=== PATIENT | male | born 1950 | race Caucasian/White ===

== ENCOUNTER 2016-12-08 04:40 | Observation (INO) | payer SELFPAY ==
[2016-12-08 06:08] LABS: BASO % 0.8 % (0.0-2.0); EOS # 0.3 K/uL (0.0-0.7); HEMATOCRIT 40.8 % (35.0-51.0); LYMPH # 2.9 K/uL (1.0-4.3); LYMPH % 46.6 % (20.0-40.0); MEAN CELL VOLUME 76.2 fL (80.0-94.0); MEAN CORPUSCULAR HGB CONC 32.8 g/dL (33.0-37.0); MEAN PLATELET VOLUME 8.8 fL (7.2-11.7); MONO # 0.6 K/uL (0.0-0.8); MONO % 10.3 % (0.0-10.0); RED CELL DISTRIBUTION WIDTH 14.8 % (11.5-14.5); WHITE BLOOD COUNT 6.3 K/uL (4.8-10.8)
[2016-12-08 06:16] LABS: INR 1.1
[2016-12-08 06:19] LABS: CHLORIDE 103 mmol/L (98-107); POTASSIUM 3.5 mmol/L (3.6-5.2); SODIUM 143 mmol/L (132-148)
[2016-12-08 06:21] LABS: GFR AFRICAN-AMERICAN > 60
[2016-12-08 06:22] LABS: ALB/GLOB RATIO 1.1 (1.0-2.1); ALKALINE PHOSPHATASE 51 U/L (38-126); ALT/SGPT 43 U/L (21-72); AST/SGOT 31 U/L (17-59); BILIRUBIN,TOTAL 0.3 mg/dL (0.2-1.3); BLOOD UREA NITROGEN 18 mg/dL (9-20); CARBON DIOXIDE 28 mmol/L (22-30); GLUCOSE,RANDOM 76 mg/dL (75-110)
[2016-12-08 06:23] LABS: CALCIUM 9.1 mg/dl (8.6-10.4)
--- NOTE | 2016-12-08 06:29 | C.PDOC ---
History Of Present Illness <Murali Leigh - Last Filed: 12/08/16 06:57> <Roosevelt Sebastian - Last Filed: 12/08/16 08:36> A 66 y/o with a Hx of diabetes, c/o chest discomfort for the past day. Pt describes the chest discomfort as "electricity with itchiness in the chest". Pt denies SOB, fever, chills, lightheadedness, diaphoresis, palpitations, dizziness , or any other complaints. (Murali Leigh R) History Per: Patient History/Exam Limitations: no limitations Onset/Duration Of Symptoms: Days Current Symptoms Are (Timing): Still Present Severity: Mild Recent travel outside of the [place]: No Additional History Per: Patient <Murali Leigh - Last Filed: 12/08/16 06:57> <Roosevelt Sebastian - Last Filed: 12/08/16 08:36> Time Seen by Provider: 12/08/16 04:59 Chief Complaint (Nursing): Chest Pain Past Medical History Reviewed: Historical Data, Nursing Documentation, Vital Signs Family History: States: Unknown Family Hx - Social History Hx Alcohol Use: No Hx Substance Use: No <Murali Leigh - Last Filed: 12/08/16 06:57> Review Of Systems Except As Marked, All Systems Reviewed And Found Negative. Constitutional: Negative for: Fever, Chills, Sweats Cardiovascular: Positive for: Chest Pain (Chest discomfort). Negative for: Palpitations, Light Headedness Respiratory: Negative for: Shortness of Breath Neurological: Negative for: Dizziness <Murali Leigh Last Filed: 12/08/16 06:57> Physical Exam - Physical Exam Appears: Non-toxic, No Acute Distress Skin: Warm, Dry Head: Atraumatic, Normacephalic Eye(s): bilateral: Normal Inspection Oral Mucosa: Moist Throat: Normal, No Exudate Chest: Symmetrical Cardiovascular: Rhythm Regular, No Murmur Respiratory: Normal Breath Sounds, No Accessory Muscle Use, No Rales, No Rhonchi , No Wheezing Gastrointestinal/Abdominal: Soft, No Tenderness Back: Normal Inspection, No CVA Tenderness Extremity: Normal ROM, No Tenderness, No Deformity Neurological/Psych: Oriented x3, Normal Speech, Normal Cognition, Normal Cranial Nerves, Normal Motor, Normal Sensation, Other (No focal deficit) Gait: Steady <Murali Leigh - Last Filed: 12/08/16 06:57> ED Course And Treatment - Laboratory Results Result Diagrams: 12/08/16 06:05 12/08/16 06:05 ECG: Interpreted By Me, Viewed By Me ECG Rhythm: Sinus Bradycardia ECG Interpretation: No Acute Changes Interpretation Of ECG: Sinus bradycardin, no acute change. normal tracings O2 Sat by Pulse Oximetry: 98 (RA) Pulse Ox Interpretation: Normal <Murali Leigh - Last Filed: 12/08/16 06:57> - Laboratory Results Result Diagrams: 12/08/16 06:05 12/08/16 06:05 <Roosevelt Sebastian - Last Filed: 12/08/16 08:36> Medical Decision Making <Murali Leigh - Last Filed: 12/08/16 06:57> <Roosevelt Sebastian - Last Filed: 12/08/16 08:36> Medical Decision Making: Impression: A 66 y/o c/o chest discomfort for the past day. Plans: EKG CXR Blood labs Reassess (Murali Leigh) Patient signed out to me at change of shift. Used arts administrator service to speak with patient. 66 y/o M c PMHx diabetes, diastolic dysfunction, unknown arrhythmia months ago in [place] p/w chest pain x 1 day. Pain is midsternal and bilateral, like electricity but also with itchiness, intermittent, last 3 hours ago lasting about 1 hour. Denies fever, cough, dyspnea, nausea, vomiting, diaphoresis, dizziness, association with food or activity. Denies leg swelling. CXR no acute disease. Labs unremarkable. EKG and bedside monitor show normal sinus rhythm, rate approximately 50. No ST elevations or depressions. Accepted by hospitalist service for cardiac observation. (Roosevelt Sebastian) Disposition - Disposition Disposition Time: 07:00 - POA Present On Arrival: None <Murali Leigh - Last Filed: 12/08/16 06:57> - POA Core Measure Indicators: Chest Pain <Roosevelt Sebastian - Last Filed: 12/08/16 08:36> - Disposition Disposition: HOSPITALIZED Condition: STABLE - Clinical Impression Clinical Impression: Chest pain - Scribe Statement The provider has reviewed the documentation as recorded by the Scribe <Murali Leigh - Last Filed: 12/08/16 06:57> <Roosevelt Sebastian - Last Filed: 12/08/16 08:36> - Scribe Statement Radha [place]ana All medical record entries made by the Scribe were at my direction and personally dictated by me. I have reviewed the chart and agree that the record accurately reflects my personal performance of the history, physical exam, medical decision making, and the department course for this patient. I have also personally directed, reviewed, and agree with the discharge instructions and disposition. (Murali Leigh) Physician Patient Turnover Patient Signed Over To: Roosevelt Sebastian Handoff Comments: pending blood work and CXR for chest discomfort. <Murali Leigh - Last Filed: 12/08/16 06:57>
--- NOTE | 2016-12-08 08:35 | RAD ---
HISTORY: chest pain COMPARISON: 12/08/2016 TECHNIQUE: Chest PA and lateral FINDINGS: LUNGS: Mild venous congestion. PLEURA: No significant pleural effusion identified. No pneumothorax apparent. CARDIOVASCULAR: Normal. OSSEOUS STRUCTURES: No significant abnormalities. VISUALIZED UPPER ABDOMEN: Normal. OTHER FINDINGS: None. IMPRESSION: Mild venous congestion.
[2016-12-08] MEDS ORDERED: Potassium Chloride 20 mEq ER Tab PO ONE ×2 (10:08→11:30)
--- NOTE | 2016-12-08 10:29 | CP.PCM.HP ---
History of Present Illness - History of Present Illness History of Present Illness: CC: "Chest discomfort" 66 year old [place] male with PMHx. of DM, HTN, BPH presents with 3 day history of left sided chest discomfort. Patient described pain as "electric" and "itchy". Episodes are intermittent, lasting 2-5 minutes at a time. Patient called the ambulance yesterday when symptoms spread from "left side" to "right side". Rest alleviates symptoms. Admits to dyspnea on exertion whenever he goes uphill. He does not have dyspnea on ambulation on flat surface and can walk 1-2 kilometers with no issue. Admits to SOB when lying flat. He sleeps using 2 pillows. Denies palpitations, SOB at rest, cough, palpitations, fevers, chills, headache, dysuria, abdominal pain. Admits he sometimes has trouble urinating due to BPH, but not recently. Denies any rashes or sick contacts. Has recently traveled here from [place]. Admits to intermittent visual changes secondary to diabetes. Admits to going to the hospital in [place] 3 months for similar symptoms and was told he had a slow heart rate, but that "some people have it and it's okay". Patient was given Q8H medication of Bellacid 300 mg (Atropa Belladona/ phenobarbital). PMHx: DM, HTN, BPH. Medications: Bellacid 300 mg, Flomax 0.4 mg PO daily, Regular insulin 30 unis SC QAM, 15 units SC HS. Allergies: NKDA Surgical Hx: denies surgeries Social Hx: denies tobacco, alcohol and illicit drug use. Family Hx: father with DM and CAD, brother with DM. PMD: In [place]. Present on Admission - Present on Admission Any Indicators Present on Admission: No Review of Systems - Constitutional Constitutional: absent: Chills, Fever - EENT Eyes: Blurred Vision (intermittently ). absent: Change in Vision Ears: absent: Dizziness - Cardiovascular Cardiovascular: Chest Pain, Dyspnea on Exertion. absent: Dyspnea, Palpitations , Paroxysmal Nocturnal Dyspnea, Pedal Edema - Respiratory Respiratory: absent: Dyspnea - Gastrointestinal Gastrointestinal: absent: Abdominal Pain, Bloating, Nausea, Vomiting - Genitourinary Genitourinary: absent: Change in Urinary Stream, Difficulty Urinating, Dysuria - Musculoskeletal Musculoskeletal: absent: Back Pain, Muscle Weakness, Numbness, Tingling - Integumentary Integumentary: absent: Dry Skin, Wounds - Neurological Neurological: absent: Dizziness, Numbness, Headaches, Paresthesias, Tingling, Weakness - Endocrine Endocrine: absent: Fatigue, Palpitations Past Patient History - Past Social History Smoking Status: Never Smoked - PSYCHIATRIC Hx Substance Use: No Meds Allergies/Adverse Reactions: Allergies Allergy/AdvReac Type Severity Reaction Status Date / Time No Known Allergies Allergy Unverified 12/08/16 05:59 Physical Exam - Constitutional Appears: No Acute Distress - Head Exam Head Exam: NORMAL INSPECTION, NORMOCEPHALIC - Eye Exam Eye Exam: EOMI, Normal appearance, PERRL - ENT Exam ENT Exam: Mucous Membranes Moist - Neck Exam Neck exam: Positive for: Full Rom, Normal Inspection - Respiratory Exam Respiratory Exam: Clear to Auscultation Bilateral, NORMAL BREATHING PATTERN - Cardiovascular Exam Cardiovascular Exam: REGULAR RHYTHM, +S1, +S2. absent: RRR - GI/Abdominal Exam GI & Abdominal Exam: Normal Bowel Sounds, Soft. absent: Distended, Tenderness - Extremities Exam Extremities exam: Positive for: full ROM, normal inspection. Negative for: pedal edema - Back Exam Back exam: FULL ROM, NORMAL INSPECTION - Neurological Exam Neurological exam: Alert, Oriented x3 - Psychiatric Exam Psychiatric exam: Normal Affect, Normal Mood - Skin Skin Exam: Dry, Normal Color, Warm Results - Vital Signs Recent Vital Signs: Last Vital Signs Temp 97.6 F 12/08/16 08:25 Pulse 50 L 12/08/16 08:25 Resp 16 12/08/16 08:25 BP 117/58 L 12/08/16 08:25 Pulse Ox 100 12/08/16 08:25 - Labs Result Diagrams: 12/08/16 06:05 12/08/16 06:05 Assessment & Plan (1) Chest pain Assessment and Plan: Admit to Telemetry. ORTEGA negative X 2. Follow up ORTEGA #3 EKG 12/08/16: NSR 53 bpm EKG 12/08/16: NSR 48 bpm f/u EKG #3 f/u Hgb A1C, TSH, FLP Start ASA 81 mg PO daily Start Crestor 5 mg PO HS Cardio Cosult - Dr. Xie- help appreciated. Status: Acute (2) Bradycardia Assessment and Plan: Cardio Cosult - Dr. Xie- help appreciated. Patient with HR in 40's-50's Patient takes home medication from [place] for bradycardia: Bellacid 300 mg Q8H ( Atropa Belladona/phenobarbital) Monitor on Telemetry. f/u cardio recommendations Status: Acute (3) Diastolic heart failure Assessment and Plan: ECHO done in [place] 09/01/16 showed: * EF 79% * Diastolic dysfuction * Calcific non-stenotic aortic valve * No wall motion abnormalities Cardio consult placed- Dr. Xie- help appreciated Status: Acute (4) Diabetes Assessment and Plan: Insulin sliding scale Hold insulin from home. Medication from [place] and not verifiable. F/U Hgb A1C Status: Acute (5) BPH (benign prostatic hyperplasia) Assessment and Plan: Continue home medications Flomax 0.4 mg PO daily Status: Acute (6) Prophylactic measure Assessment and Plan: Heparin 5000 units SC Q8H Protonix 40 mg PO daily Status: Acute
[2016-12-08] MEDS: Pantoprazole 40 mg EC Tab PO SCH (11:29)
[2016-12-08] MEDS: (Novolin R) Insulin Human Regular 100 units/ml vial SC SCH ×2 (17:23→21:38)
[2016-12-09 06:53] LABS: CHLORIDE 103 mmol/L (98-107)
[2016-12-09 06:54] LABS: SODIUM 137 mmol/L (132-148)
[2016-12-09 06:56] LABS: ALB/GLOB RATIO 1.2 (1.0-2.1); ALKALINE PHOSPHATASE 55 U/L (38-126); ALT/SGPT 33 U/L (21-72); AST/SGOT 24 U/L (17-59); BILIRUBIN,TOTAL 0.5 mg/dL (0.2-1.3); BLOOD UREA NITROGEN 17 mg/dL (9-20); CARBON DIOXIDE 24 mmol/L (22-30); CHOLESTEROL 175 mg/dL (0-199); GFR AFRICAN-AMERICAN > 60; GLUCOSE,RANDOM 186 mg/dL (75-110); TOTAL PROTEIN 7.1 g/dL (6.3-8.3)
[2016-12-09 06:57] LABS: CALCIUM 9.1 mg/dl (8.6-10.4); PHOSPHOROUS 3.2 mg/dL (2.5-4.5)
[2016-12-09 07:11] LABS: BASO # 0.1 K/uL (0.0-0.2); BASO % 1.3 % (0.0-2.0); EOS # 0.4 K/uL (0.0-0.7); EOS % 5.7 % (0.0-4.0); LYMPH # 2.6 K/uL (1.0-4.3); LYMPH % 40.4 % (20.0-40.0); MEAN CELL VOLUME 75.9 fL (80.0-94.0); MEAN CORPUSCULAR HEMOGLOBIN 24.8 pg (27.0-31.0); MEAN CORPUSCULAR HGB CONC 32.6 g/dL (33.0-37.0); MEAN PLATELET VOLUME 8.8 fL (7.2-11.7); MONO # 0.6 K/uL (0.0-0.8); MONO % 9.8 % (0.0-10.0); NRBC % 0.1 % (0.0-2.0); RED CELL DISTRIBUTION WIDTH 14.9 % (11.5-14.5); WHITE BLOOD COUNT 6.5 K/uL (4.8-10.8)
[2016-12-09 07:25] LABS: THYROID STIMULATING HORMONE 1.57 mIU/L (0.46-4.68)
[2016-12-09] MEDS: (Novolin R) Insulin Human Regular 100 units/ml vial SC SCH ×4 (08:17→22:08)
[2016-12-09] MEDS: Pantoprazole 40 mg EC Tab PO SCH (10:30)
--- NOTE | 2016-12-09 10:42 | CP.PCM.CON ---
<Malcolm Godoy - Last Filed: 12/10/16 09:03> History of Present Illness - History of Present Illness History of Present Illness: Consult Note for Dr. Xie Reason for Consult: Bradycardia 66 y/o M with PMH of DM, HTN, and BPH presents to the hospital on 12/08/16 for chest pain x 3 days. Pt stated the pain was initially on the left side but then became generalized. Pain was described as sharp. Pt admits to difficulty breathing upon exertion that is relieved with rest. Pt does admit to intermittent orthopnea. Pt denies SOB while at rest, N/V/D, syncope, dizziness, recent sick contacts, fatigue. Pt received multiple EKG's since admission for bradycardia, all which have shown sinus bradycardia. Pt's heart rate has ranged between the 40's and 50's. Pt has had this issue in the past and went to the hospital in [place]. There, they determined the bradycardia to be non-pathologic. Today, pt is anxious to go home and states he has no symptoms. Denies CP, SOB, N /V/D. PMH: DM, HTN, BPH Surgical Hx: None Social Hx: Denies tobacco, alcohol, and illicit drug use. Family Hx: CAD, DM Medications: See MAR Allergies: NKDA Review of Systems - EENT Eyes: absent: Blurred Vision, Change in Vision - Cardiovascular Cardiovascular: Chest Pain. absent: Irregular Heart Rhythm - Respiratory Respiratory: Dyspnea. absent: Cough - Gastrointestinal Gastrointestinal: absent: Abdominal Pain, Diarrhea, Vomiting - Genitourinary Genitourinary: Dysuria. absent: Hematuria - Integumentary Integumentary: absent: New Lesions, Rash - Neurological Neurological: absent: Dizziness, Syncope, Tingling Past Patient History - Past Medical History & Family History Past Medical History?: Yes - Past Social History Smoking Status: Never Smoked - CARDIAC Hx Cardiac Disorders: No - PULMONARY Hx Respiratory Disorders: No - NEUROLOGICAL Hx Neurological Disorder: No - HEENT Hx HEENT Problems: No - RENAL Hx Chronic Kidney Disease: No - ENDOCRINE/METABOLIC Hx Endocrine Disorders: Yes Hx Diabetes Mellitus Type 2: Yes - HEMATOLOGICAL/ONCOLOGICAL Hx Blood Disorders: No - INTEGUMENTARY Hx Dermatological Problems: No - MUSCULOSKELETAL/RHEUMATOLOGICAL Hx Musculoskeletal Disorders: No Hx Falls: No - GASTROINTESTINAL Hx Gastrointestinal Disorders: No - GENITOURINARY/GYNECOLOGICAL Hx Genitourinary Disorders: No - PSYCHIATRIC Hx Substance Use: No - SURGICAL HISTORY Hx Surgeries: No - ANESTHESIA Hx Anesthesia: No Meds Allergies/Adverse Reactions: Allergies Allergy/AdvReac Type Severity Reaction Status Date / Time No Known Allergies Allergy Unverified 12/08/16 05:59 - Medications Medications: Current Medications Aspirin (Aspirin Chewable) 81 mg PO DAILY [facility] Heparin Sodium (Porcine) (Heparin) 5,000 units SC Q8 [facility] Last Admin: 12/09/16 05:50 Dose: 5,000 units Insulin Human Regular (Novolin R) 0 unit SC ACHS [facility] PRN Reason: Protocol Last Admin: 12/09/16 08:17 Dose: 2 unit Pantoprazole Sodium (Protonix Ec Tab) 40 mg PO DAILY [facility] Last Admin: 12/08/16 11:29 Dose: 40 mg Pneumococcal Polyvalent Vaccine (Pneumovax 23 Vaccine) 0.5 ml IM .ONCE ONE Stop: 12/10/16 12:28 Rosuvastatin Calcium (Crestor) 5 mg PO HS [facility] Last Admin: 12/08/16 21:39 Dose: 5 mg Tamsulosin HCl (Flomax) 0.4 mg PO DAILY [facility] Last Admin: 12/08/16 15:34 Dose: 0.4 mg Physical Exam - Constitutional Appears: Well, No Acute Distress - Head Exam Head Exam: ATRAUMATIC, NORMAL INSPECTION, NORMOCEPHALIC - Respiratory Exam Respiratory Exam: Clear to Auscultation Bilateral, NORMAL BREATHING PATTERN - Cardiovascular Exam Cardiovascular Exam: Bradycardia, +S1, +S2 - GI/Abdominal Exam GI & Abdominal Exam: Normal Bowel Sounds, Soft. absent: Tenderness - Extremities Exam Extremities exam: Negative for: calf tenderness, pedal edema - Neurological Exam Neurological exam: Alert, Oriented x3 - Skin Skin Exam: Intact, Normal Color, Warm Results - Vital Signs Recent Vital Signs: Last Vital Signs Temp 98.1 F 12/09/16 07:15 Pulse 61 12/09/16 07:15 Resp 20 12/09/16 07:15 BP 125/60 12/09/16 07:15 Pulse Ox 98 12/09/16 07:15 - Labs Result Diagrams: 12/10/16 07:16 12/10/16 07:16 Labs: Laboratory Results - last 24 hr 12/08/16 12/08/16 12/08/16 11:17 12:31 16:37 WBC RBC Hgb Hct MCV MCH MCHC RDW Plt Count MPV Neut % (Auto) Lymph % (Auto) Cherry % (Auto) Eos % (Auto) Baso % (Auto) Neut # Lymph # Cherry # Eos # Baso # Sodium Potassium Chloride Carbon Dioxide Anion Gap BUN Creatinine Est GFR ( Amer) Est GFR (Non-Af Amer) POC Glucose (mg/dL) 117 H 217 H Random Glucose Hemoglobin A1c Calcium Phosphorus Magnesium Total Bilirubin AST ALT Alkaline Phosphatase Total Creatine Kinase 196 H CK-MB (Mass) 1.63 Troponin I, Quant < 0.0120 Total Protein Albumin Globulin Albumin/Globulin Ratio Triglycerides Cholesterol LDL Cholesterol Direct HDL Cholesterol TSH 3rd Generation 12/08/16 12/08/16 12/09/16 18:29 21:24 06:36 WBC RBC Hgb Hct MCV MCH MCHC RDW Plt Count MPV Neut % (Auto) Lymph % (Auto) Cherry % (Auto) Eos % (Auto) Baso % (Auto) Neut # Lymph # Cherry # Eos # Baso # Sodium Potassium Chloride Carbon Dioxide Anion Gap BUN Creatinine Est GFR ( Amer) Est GFR (Non-Af Amer) POC Glucose (mg/dL) 207 H 193 H Random Glucose Hemoglobin A1c Calcium Phosphorus Magnesium Total Bilirubin AST ALT Alkaline Phosphatase Total Creatine Kinase 143 CK-MB (Mass) 1.58 Troponin I, Quant < 0.0120 Total Protein Albumin Globulin Albumin/Globulin Ratio Triglycerides Cholesterol LDL Cholesterol Direct HDL Cholesterol TSH 3rd Generation 12/09/16 12/09/16 12/09/16 06:37 06:37 06:37 WBC 6.5 RBC 5.67 Hgb 14.0 Hct 43.0 MCV 75.9 L MCH 24.8 L MCHC 32.6 L RDW 14.9 H Plt Count 237 MPV 8.8 Neut % (Auto) 42.8 L Lymph % (Auto) 40.4 H Cherry % (Auto) 9.8 Eos % (Auto) 5.7 H Baso % (Auto) 1.3 Neut # 2.8 Lymph # 2.6 Cherry # 0.6 Eos # 0.4 Baso # 0.1 Sodium 137 Potassium 4.0 Chloride 103 Carbon Dioxide 24 Anion Gap 14 BUN 17 Creatinine 1.1 Est GFR ( Amer) > 60 Est GFR (Non-Af Amer) > 60 POC Glucose (mg/dL) Random Glucose 186 H Hemoglobin A1c 8.3 H Calcium 9.1 Phosphorus 3.2 Magnesium 2.0 Total Bilirubin 0.5 AST 24 ALT 33 Alkaline Phosphatase 55 Total Creatine Kinase CK-MB (Mass) Troponin I, Quant Total Protein 7.1 Albumin 3.8 Globulin 3.3 Albumin/Globulin Ratio 1.2 Triglycerides 152 H Cholesterol 175 LDL Cholesterol Direct 120 HDL Cholesterol 40 TSH 3rd Generation 1.57 Assessment & Plan (1) Bradycardia Assessment and Plan: Asymptomatic bradycardia No need for any further intervention at this time Caution with any heart rate lowering medication Will sign off at this time, please reconsult as necessary, thank you Status: Acute <Concetta Xie - Last Filed: 12/11/16 07:24> Results - Vital Signs Recent Vital Signs: Last Vital Signs Temp 97.5 F L 12/10/16 13:17 Pulse 55 L 12/10/16 13:17 Resp 20 12/10/16 13:17 BP 129/71 12/10/16 13:17 Pulse Ox 97 12/10/16 13:17 - Labs Result Diagrams: 12/10/16 07:16 12/10/16 07:16 Labs: Laboratory Results - last 24 hr 12/10/16 12/10/16 12/10/16 07:16 07:16 11:32 WBC 6.0 RBC 5.20 Hgb 13.0 Hct 39.1 MCV 75.2 L MCH 25.1 L MCHC 33.3 RDW 14.8 H Plt Count 216 MPV 9.2 Neut % (Auto) 48.2 L Lymph % (Auto) 36.8 Cherry % (Auto) 8.7 Eos % (Auto) 5.5 H Baso % (Auto) 0.8 Neut # 2.9 Lymph # 2.2 Cherry # 0.5 Eos # 0.3 Baso # 0.0 Sodium 139 Potassium 3.9 Chloride 105 Carbon Dioxide 23 Anion Gap 15 BUN 17 Creatinine 1.0 Est GFR ( Amer) > 60 Est GFR (Non-Af Amer) > 60 POC Glucose (mg/dL) 138 H Random Glucose 298 H Calcium 9.4 Total Bilirubin 0.5 AST 19 ALT 26 Alkaline Phosphatase 50 NT-Pro-B Natriuret Pep 62.7 Total Protein 6.6 Albumin 3.5 Globulin 3.1 Albumin/Globulin Ratio 1.2 Attending/Attestation - Attestation Notes (Text): 12/11/16 07:24 Asymptomatic bradycardia hold av josephine blockers
--- NOTE | 2016-12-09 12:50 | CARD ---
APPROVED REPORT EKG Measurement Heart [id number] <Conclusion> Sinus bradycardia Otherwise normal ECG
--- NOTE | 2016-12-09 12:51 | CARD ---
APPROVED REPORT EKG Measurement Heart [id number] [place] [id number] <Conclusion> Sinus bradycardia Otherwise normal ECG
--- NOTE | 2016-12-09 12:51 | CARD ---
APPROVED REPORT EKG Measurement Heart [id number] <Conclusion> Sinus bradycardia Otherwise normal ECG
[2016-12-09 14:09] VITALS: O2SAT 97
--- NOTE | 2016-12-09 14:34 | CP.PCM.PN ---
<Renata Nick - Last Filed: 12/09/16 17:48> Subjective - Date & Time of Evaluation Date of Evaluation: 12/09/16 Time of Evaluation: 14:34 - Subjective Subjective: Translater: Jeffery Carbajal [id number] & Issac [id number] Medicine Progress Note- Dr. Arce Service Patient was seen and examined at bedside in no acute distress. Patient reports still feeling "electric feeling with itching" on his chest. He also reports feeling short of breath when going up stairs and bending over. Patient denies palpitations, abdominal pain, nausea, vomiting, and constipation. Objective - Vital Signs/Intake and Output Vital Signs (last 24 hours): Temp Pulse Resp BP Pulse Ox 98.2 F 59 L 20 108/62 97 12/09/16 14:00 12/09/16 14:00 12/09/16 14:00 12/09/16 14:00 12/09/16 14:00 Intake and Output: 12/09/16 12/09/16 06:59 18:59 Intake Total 120 Balance 120 - Medications Medications: Current Medications Aspirin (Aspirin Chewable) 81 mg PO DAILY [facility] Last Admin: 12/09/16 10:30 Dose: 81 mg Heparin Sodium (Porcine) (Heparin) 5,000 units SC Q8 [facility] Last Admin: 12/09/16 13:22 Dose: 5,000 units Insulin Human Regular (Novolin R) 0 unit SC ACHS [facility] PRN Reason: Protocol Last Admin: 12/09/16 13:21 Dose: 2 unit Pantoprazole Sodium (Protonix Ec Tab) 40 mg PO DAILY [facility] Last Admin: 12/09/16 10:30 Dose: 40 mg Pneumococcal Polyvalent Vaccine (Pneumovax 23 Vaccine) 0.5 ml IM .ONCE ONE Stop: 12/10/16 12:28 Rosuvastatin Calcium (Crestor) 5 mg PO HS [facility] Last Admin: 12/08/16 21:39 Dose: 5 mg Tamsulosin HCl (Flomax) 0.4 mg PO DAILY [facility] Last Admin: 12/09/16 10:30 Dose: 0.4 mg - Labs Labs: 12/09/16 06:37 12/09/16 06:37 PT 12.6 SECONDS (9.7-12.2) H 12/08/16 06:05 INR 1.1 12/08/16 06:05 APTT 33 SECONDS (21-34) 12/08/16 06:05 - Constitutional Appears: No Acute Distress - Head Exam Head Exam: NORMAL INSPECTION, NORMOCEPHALIC - Eye Exam Eye Exam: EOMI, Normal appearance - ENT Exam ENT Exam: Mucous Membranes Moist - Neck Exam Neck Exam: Full ROM, Normal Inspection - Respiratory Exam Respiratory Exam: Clear to Ausculation Bilateral, NORMAL BREATHING PATTERN. absent: Rhonchi, Wheezes - Cardiovascular Exam Cardiovascular Exam: REGULAR RHYTHM, +S1, +S2 - GI/Abdominal Exam GI & Abdominal Exam: Soft, Normal Bowel Sounds. absent: Tenderness - Neurological Exam Neurological Exam: Alert, Awake, Normal Gait, Oriented x3 - Psychiatric Exam Psychiatric exam: Normal Affect, Normal Mood - Skin Skin Exam: Dry, Intact, Normal Color, Warm Assessment and Plan (1) Chest pain Assessment & Plan: Admit to Telemetry. ORTEGA negative X 2. Follow up ORTEGA #3 EKG 12/08/16: NSR 53 bpm EKG 12/08/16: NSR 48 bpm EKG #3 12/08/16: Sinus renetta 53bpm ECHO- pending ProBNP- pending Hgb A1C 8.3 TSH 1.57 TG- 152; Chol 175; LDL 120; HDL-40 Start ASA 81 mg PO daily Start Crestor 5 mg PO HS Cardio Cosult - Dr. Xie- help appreciated Status: Acute (2) Bradycardia Assessment & Plan: Cardio Cosult - Dr. Xie- help appreciated. Patient with HR in 40's-50's Patient takes home medication from [place] for bradycardia: Bellacid 300 mg Q8H ( Atropa [place]ona/phenobarbital) Monitor on Telemetry. f/u cardio recommendations Status: Acute (3) Diastolic heart failure Assessment & Plan: ECHO done in [place] 09/01/16 showed: * EF 79% * Diastolic dysfuction * Calcific non-stenotic aortic valve * No wall motion abnormalities ECHO- pending Cardio consult placed- Dr. Xie- help appreciated Status: Acute (4) Diabetes Assessment & Plan: Insulin sliding scale Hold insulin from home. Medication from [place] and not verifiable. Hgb A1C: 8.3 Status: Acute (5) BPH (benign prostatic hyperplasia) Assessment & Plan: Continue home medications Flomax 0.4 mg PO daily Status: Acute (6) Prophylactic measure Assessment & Plan: Heparin 5000 units SC Q8H Protonix 40 mg PO daily Status: Acute <Crow Arce H - Last Filed: 12/10/16 07:35> Objective - Vital Signs/Intake and Output Vital Signs (last 24 hours): Temp Pulse Resp BP Pulse Ox 98.6 F 44 L 20 126/74 97 12/09/16 23:05 12/10/16 04:11 12/09/16 23:05 12/09/16 23:05 12/09/16 23:05 - Medications Medications: Current Medications Aspirin (Aspirin Chewable) 81 mg PO DAILY [facility] Last Admin: 12/09/16 10:30 Dose: 81 mg Heparin Sodium (Porcine) (Heparin) 5,000 units SC Q8 [facility] Last Admin: 12/10/16 05:10 Dose: 5,000 units Insulin Human Regular (Novolin R) 0 unit SC ACHS [facility] PRN Reason: Protocol Last Admin: 12/09/16 22:08 Dose: 3 unit Pantoprazole Sodium (Protonix Ec Tab) 40 mg PO DAILY [facility] Last Admin: 12/09/16 10:30 Dose: 40 mg Pneumococcal Polyvalent Vaccine (Pneumovax 23 Vaccine) 0.5 ml IM .ONCE ONE Stop: 12/10/16 12:28 Rosuvastatin Calcium (Crestor) 5 mg PO [facility] Last Admin: 12/09/16 22:08 Dose: 5 mg Tamsulosin HCl (Flomax) 0.4 mg PO DAILY [facility] Last Admin: 12/09/16 10:30 Dose: 0.4 mg - Labs Labs: 12/09/16 06:37 12/09/16 06:37 PT 12.6 SECONDS (9.7-12.2) H 12/08/16 06:05 INR 1.1 12/08/16 06:05 APTT 33 SECONDS (21-34) 12/08/16 06:05 Attending/Attestation - Attestation I have personally seen and examined this patient.: Yes I have fully participated in the care of the patient.: Yes I have reviewed all pertinent clinical information, including history, physical exam and plan: Yes Notes (Text): Medical attending: Patient was seen and examined by me. Agree with the above note by the resident. The patient intially wanted to leave AMA. We pointed out to him via translation that he intially came to the hospital due to chest pain. He had not yet had an echo when we had seen him. Cardiac enzymes were negative. Crow Arce
[2016-12-10 07:31] LABS: BASO % 0.8 % (0.0-2.0); EOS # 0.3 K/uL (0.0-0.7); EOS % 5.5 % (0.0-4.0); HEMATOCRIT 39.1 % (35.0-51.0); LYMPH # 2.2 K/uL (1.0-4.3); LYMPH % 36.8 % (20.0-40.0); MEAN CELL VOLUME 75.2 fL (80.0-94.0); MEAN CORPUSCULAR HEMOGLOBIN 25.1 pg (27.0-31.0); MEAN CORPUSCULAR HGB CONC 33.3 g/dL (33.0-37.0); MEAN PLATELET VOLUME 9.2 fL (7.2-11.7); MONO # 0.5 K/uL (0.0-0.8); MONO % 8.7 % (0.0-10.0); RED CELL DISTRIBUTION WIDTH 14.8 % (11.5-14.5)
[2016-12-10 07:39] LABS: CHLORIDE 105 mmol/L (98-107); POTASSIUM 3.9 mmol/L (3.6-5.2); SODIUM 139 mmol/L (132-148)
[2016-12-10 07:41] LABS: AST/SGOT 19 U/L (17-59); BILIRUBIN,TOTAL 0.5 mg/dL (0.2-1.3); CARBON DIOXIDE 23 mmol/L (22-30); GFR AFRICAN-AMERICAN > 60
[2016-12-10 07:42] LABS: ALB/GLOB RATIO 1.2 (1.0-2.1); ALKALINE PHOSPHATASE 50 U/L (38-126); ALT/SGPT 26 U/L (21-72); BLOOD UREA NITROGEN 17 mg/dL (9-20); CALCIUM 9.4 mg/dl (8.6-10.4); GLUCOSE,RANDOM 298 mg/dL (75-110); TOTAL PROTEIN 6.6 g/dL (6.3-8.3)
[2016-12-10] MEDS: (Novolin R) Insulin Human Regular 100 units/ml vial SC SCH ×2 (08:30→12:30)
[2016-12-10] MEDS: Pantoprazole 40 mg EC Tab PO SCH (10:39)
[2016-12-10] MEDS ORDERED: Pneumococcal 23-Valent Vaccine IM ONE (12:27)
--- NOTE | 2016-12-10 13:18 | CARD ---
APPROVED REPORT EXAM: Two-dimensional and M-mode echocardiogram with Doppler and color Doppler. Other Information Quality : GoodRhythm : NSR INDICATION Dyspnea Chest Pain RISK FACTORS Hypertension Diabetes M-Mode DIMENSIONS RVDd1.50 (2.1-3.2cm)Left Atrium (MM)3.38 (2.5-4.0cm) IVSd1.14 (0.7-1.1cm)Aortic Root3.12 (2.2-3.7cm) LVDd5.08 (4.0-5.6cm)Aortic Cusp Exc.1.98 (1.5-2.0cm) PWd1.01 (0.7-1.1cm)FS (%) 48 % LVDs2.64 (2.0-3.8cm)LVEF (%)79 (>50%) Mitral Valve MV E Qrkjffxi951.3cm/sMV A Dseqvsco98.6cm/sE/A ratio1.7 TDI E/Lateral E'0.0E/Medial E'0.0 Tricuspid Valve TR Peak Jjiqjkmi493vm/sTR Peak Gr.[id number] LEFT VENTRICLE The left ventricle is normal size. There is normal left ventricular wall thickness. The left ventricular function is normal. The left ventricular ejection fraction is within the normal range. There is normal LV segmental wall motion. The left ventricular diastolic function is normal. No left ventricle thrombus noted on this study. There is no ventricular septal defect visualized. There is no left ventricular aneurysm. There is no mass noted in the left ventricle. RIGHT VENTRICLE The right ventricle is normal size. There is normal right ventricular wall thickness. The right ventricular systolic function is normal. ATRIA The left atrium size is normal. The right atrium size is normal. AORTIC VALVE The aortic valve is calcified but opens well. There is mild aortic regurgitation. There is no aortic valvular stenosis. There is no aortic valvular vegetation. MITRAL VALVE The mitral valve is normal in structure. There is no mitral valve stenosis. There is no mitral valve regurgitation noted. TRICUSPID VALVE The tricuspid valve is normal in structure. There is mild pulmonary hypertension. PULMONIC VALVE The pulmonary valve is normal in structure. There is trace to mild pulmonic valvular regurgitation. GREAT VESSELS The aortic root is normal in size. The ascending aorta is normal in size. The pulmonary artery is normal. The IVC is normal in size and collapses >50% with inspiration. PERICARDIAL EFFUSION There is no pericardial effusion. <Conclusion> There is mild aortic regurgitation. There is mild pulmonary hypertension. There is trace to mild pulmonic valvular regurgitation. LVEF IS 70%.
[2016-12-10 16:18] VITALS: BP 129/71; PULSE 55; RESP 20; TEMP 97.5
--- NOTE | 2016-12-10 17:25 | PCM.HF ---
Heart Failure Core Measure - Heart Failure Ejection Fraction: 40 % or Greater CHRIS Inhibitor Prescribed: Yes Beta-Nydia Prescribed: None Contraindication/Reason for not providing: bradycardia Angiotensin II Receptor Nydia Prescribed: No Contraindication/Reason for not providing: on chris AnticoagulationTherapy for Atrial Fibrillation/Atrialflutter: No Contraindication/Reason for not providing: no hx of afib Aldosterone Antagonist Prescribed: No Contraindication/Reason for not providing: ef.45 Hydralazine Nitrate Prescribed: No Contraindication/Reason for not providing: ef>45 Implantable Cardioverter Defibrillator Therapy: No Contraindication/Reason for not providing: ef>45 Cardiac Resynchronization Therapy Prescribed: No Contraindication/Reason for not providing: ef.45 - Follow up Will be discharged to: Home Follow Up Date (must be within 7 days from discharge): 12/15/16 Follow Up Time: 09:00
--- NOTE | 2016-12-10 18:12 | CP.PCM.DIS ---
<Renata Nick - Last Filed: 12/10/16 18:09> Provider - Provider Date of Admission: 12/08/16 08:31 Attending physician: Jarrett Rivas MD Consults: Cardiology consult- Dr. Xie Time Spent in preparation of Discharge (in minutes): 45 Diagnosis - Discharge Diagnosis (1) Chest pain Status: Resolved Comment: See hospital summary for more details. (2) Bradycardia Status: Chronic Comment: See hospital summary for more details. (3) Diastolic heart failure Status: Chronic Comment: See hospital summary for more details. Patient starting Lisinopril 2.5mg PO Daily. (4) Diabetes Status: Chronic Comment: See hospital summary for more details. (5) BPH (benign prostatic hyperplasia) Status: Chronic Comment: See hospital summary for more details. Hospital Course - Lab Results Lab Results: Most Recent Lab Values WBC 6.0 K/uL (4.8-10.8) 12/10/16 07:16 RBC 5.20 Mil/uL (4.40-5.90) 12/10/16 07:16 Hgb 13.0 g/dL (12.0-18.0) 12/10/16 07:16 Hct 39.1 % (35.0-51.0) 12/10/16 07:16 MCV 75.2 fL (80.0-94.0) L 12/10/16 07:16 MCH 25.1 pg (27.0-31.0) L 12/10/16 07:16 MCHC 33.3 g/dL (33.0-37.0) 12/10/16 07:16 RDW 14.8 % (11.5-14.5) H 12/10/16 07:16 Plt Count 216 K/uL (130-400) 12/10/16 07:16 MPV 9.2 fL (7.2-11.7) 12/10/16 07:16 Neut % (Auto) 48.2 % (50.0-75.0) L 12/10/16 07:16 Lymph % (Auto) 36.8 % (20.0-40.0) 12/10/16 07:16 [place] % (Auto) 8.7 % (0.0-10.0) 12/10/16 07:16 Eos % (Auto) 5.5 % (0.0-4.0) H 12/10/16 07:16 Baso % (Auto) 0.8 % (0.0-2.0) 12/10/16 07:16 Neut # 2.9 K/uL (1.8-7.0) 12/10/16 07:16 Lymph # 2.2 K/uL (1.0-4.3) 12/10/16 07:16 [place] # 0.5 K/uL (0.0-0.8) 12/10/16 07:16 Eos # 0.3 K/uL (0.0-0.7) 12/10/16 07:16 Baso # 0.0 K/uL (0.0-0.2) 12/10/16 07:16 PT 12.6 SECONDS (9.7-12.2) H 12/08/16 06:05 INR 1.1 12/08/16 06:05 APTT 33 SECONDS (21-34) 12/08/16 06:05 Sodium 139 mmol/L (132-148) 12/10/16 07:16 Potassium 3.9 mmol/L (3.6-5.2) 12/10/16 07:16 Chloride 105 mmol/L (98-107) 12/10/16 07:16 Carbon Dioxide 23 mmol/L (22-30) 12/10/16 07:16 Anion Gap 15 (10-20) 12/10/16 07:16 BUN 17 mg/dL (9-20) 12/10/16 07:16 Creatinine 1.0 MG/DL (0.8-1.5) 12/10/16 07:16 Est GFR ( Amer) > 60 12/10/16 07:16 Est GFR (Non-Af Amer) > 60 12/10/16 07:16 POC Glucose (mg/dL) 138 mg/dL (65-110) H 12/10/16 11:32 Random Glucose 298 mg/dL (75-110) H 12/10/16 07:16 Hemoglobin A1c 8.3 % (4.2-6.5) H 12/09/16 06:37 Calcium 9.4 mg/dl (8.6-10.4) 12/10/16 07:16 Phosphorus 3.2 mg/dL (2.5-4.5) 12/09/16 06:37 Magnesium 2.0 mg/dL (1.6-2.3) 12/09/16 06:37 Total Bilirubin 0.5 mg/dL (0.2-1.3) 12/10/16 07:16 AST 19 U/L (17-59) 12/10/16 07:16 ALT 26 U/L (21-72) 12/10/16 07:16 Alkaline Phosphatase 50 U/L (38-126) 12/10/16 07:16 Total Creatine Kinase 143 U/L (55-170) 12/08/16 18:29 CK-MB (Mass) 1.58 ng/mL (0.0-3.38) 12/08/16 18:29 Troponin I < 0.0120 ng/mL (0.00-0.120) 12/08/16 06:05 Troponin I, Quant < 0.0120 ng/mL (0.00-0.120) 12/08/16 18:29 NT-Pro-B Natriuret Pep 62.7 pg/mL (0-900) 12/10/16 07:16 Total Protein 6.6 g/dL (6.3-8.3) 12/10/16 07:16 Albumin 3.5 g/dL (3.5-5.0) 12/10/16 07:16 Globulin 3.1 gm/dL (2.2-3.9) 12/10/16 07:16 Albumin/Globulin Ratio 1.2 (1.0-2.1) 12/10/16 07:16 Triglycerides 152 mg/dL (0-149) H 12/09/16 06:37 Cholesterol 175 mg/dL (0-199) 12/09/16 06:37 LDL Cholesterol Direct 120 mg/dL (0-129) 12/09/16 06:37 HDL Cholesterol 40 mg/dL (30-70) 12/09/16 06:37 TSH 3rd Generation 1.57 mIU/L (0.46-4.68) 12/09/16 06:37 - Hospital Course Hospital Course: CC: "Chest discomfort" 66 year old Polish male with PMHx. of DM, HTN, BPH presents with 3 day history of left sided chest discomfort. Patient described pain as "electric" and "itchy". Episodes are intermittent, lasting 2-5 minutes at a time. Patient called the ambulance yesterday when symptoms spread from "left side" to "right side". Rest alleviates symptoms. Admits to dyspnea on exertion whenever he goes uphill. He does not have dyspnea on ambulation on flat surface and can walk 1-2 kilometers with no issue. Admits to SOB when lying flat. He sleeps using 2 pillows. Denies palpitations, SOB at rest, cough, palpitations, fevers, chills, headache, dysuria, abdominal pain. Admits he sometimes has trouble urinating due to BPH, but not recently. Denies any rashes or sick contacts. Has recently traveled here from [place]. Admits to intermittent visual changes secondary to diabetes. Admits to going to the hospital in [place] 3 months for similar symptoms and was told he had a slow heart rate, but that "some people have it and it's okay". Patient was given Q8H medication of Bellacid 300 mg (Atropa Belladona/ phenobarbital). Patient was admitted for "itchy, electric" chest pain. In the ED, EKG showed sinus bradycardia and chest xray showed mild venous congestion. Once admitted to telemetry, patient was monitored. Echo showed mild aortic regurgitation, mild pulmonary hypertension, trace to mild pulmonic valvular regurgitation and EF 70%. Cardiology was consulted. Patient advised to avoid heart rate lowering medications. Repeat EKGs showed sinus bradycardia. ProBNP was 63.3 and troponins were negative x 3. Patient is stable for discharge home as per Dr. Arce. This is a summary of the hospital course. Please see chart for more details. Patient is stable for discharge to home as per Dr. Arce. Patient is to continue home medications, and start new medications listed below: Aspirin 81mg daily Simvastatin 10mg daily Lisinopril 2.5mg daily Patient is to follow up with with [facility] within one week of discharge. These instructions have been discussed and understood by the patient. If patient has return of symptoms, patient should return to the ED. Discharge Exam - Head Exam Head Exam: ATRAUMATIC, NORMAL INSPECTION, NORMOCEPHALIC - Eye Exam Eye Exam: EOMI, Normal appearance - ENT Exam ENT Exam: Mucous Membranes Moist - Neck Exam Neck exam: Full Rom, Normal Inspection - Respiratory Exam Respiratory Exam: NORMAL BREATHING PATTERN, UNREMARKABLE. absent: Rhonchi, Wheezes - Cardiovascular Exam Cardiovascular Exam: Bradycardia, REGULAR RHYTHM, +S1, +S2 - GI/Abdominal Exam GI & Abdominal Exam: Normal Bowel Sounds, Soft, Unremarkable - Extremities Exam Extremities exam: full ROM, normal inspection - Neurological Exam Neurological exam: Alert, Normal Gait, Oriented x3 - Psychiatric Exam Psychiatric exam: Normal Affect, Normal Mood - Skin Skin Exam: Dry, Intact, Normal Color, Warm Discharge Plan - Discharge Medications Prescriptions: Aspirin [Aspirin Chewable] 81 mg PO DAILY #30 Lisinopril 2.5 mg PO DAILY #30 tablet Simvastatin 10 mg PO DAILY #30 tablet - Follow Up Plan Condition: STABLE Disposition: HOME/ ROUTINE Instructions: Aspirin (By mouth), Simvastatin (By mouth), Chest Pain (DC), Benign Prostatic Hypertrophy (DC), Bradycardia (DC) Additional Instructions: Patient is stable for discharge to home as per Dr. Arce. Patient is to continue home medications, and start new medications listed below: Aspirin 81mg daily Simvastatin 10mg daily Lisinopril 2.5mg daily Patient is to follow up with with [facility] within one week of discharge. These instructions have been discussed and understood by the patient. If patient has return of symptoms, patient should return to the ED. Referrals: Suly Valle MD [Staff Provider] - <Crow Arce - Last Filed: 12/10/16 18:30> Provider - Provider Date of Admission: 12/08/16 08:31 Attending physician: Jarrett Rivas MD Hospital Course - Lab Results Lab Results: Most Recent Lab Values WBC 6.0 K/uL (4.8-10.8) 12/10/16 07:16 RBC 5.20 Mil/uL (4.40-5.90) 12/10/16 07:16 Hgb 13.0 g/dL (12.0-18.0) 12/10/16 07:16 Hct 39.1 % (35.0-51.0) 12/10/16 07:16 MCV 75.2 fL (80.0-94.0) L 12/10/16 07:16 MCH 25.1 pg (27.0-31.0) L 12/10/16 07:16 MCHC 33.3 g/dL (33.0-37.0) 12/10/16 07:16 RDW 14.8 % (11.5-14.5) H 12/10/16 07:16 Plt Count 216 K/uL (130-400) 12/10/16 07:16 MPV 9.2 fL (7.2-11.7) 12/10/16 07:16 Neut % (Auto) 48.2 % (50.0-75.0) L 12/10/16 07:16 Lymph % (Auto) 36.8 % (20.0-40.0) 12/10/16 07:16 [place] % (Auto) 8.7 % (0.0-10.0) 12/10/16 07:16 Eos % (Auto) 5.5 % (0.0-4.0) H 12/10/16 07:16 Baso % (Auto) 0.8 % (0.0-2.0) 12/10/16 07:16 Neut # 2.9 K/uL (1.8-7.0) 12/10/16 07:16 Lymph # 2.2 K/uL (1.0-4.3) 12/10/16 07:16 [place] # 0.5 K/uL (0.0-0.8) 12/10/16 07:16 Eos # 0.3 K/uL (0.0-0.7) 12/10/16 07:16 Baso # 0.0 K/uL (0.0-0.2) 12/10/16 07:16 PT 12.6 SECONDS (9.7-12.2) H 12/08/16 06:05 INR 1.1 12/08/16 06:05 APTT 33 SECONDS (21-34) 12/08/16 06:05 Sodium 139 mmol/L (132-148) 12/10/16 07:16 Potassium 3.9 mmol/L (3.6-5.2) 12/10/16 07:16 Chloride 105 mmol/L (98-107) 12/10/16 07:16 Carbon Dioxide 23 mmol/L (22-30) 12/10/16 07:16 Anion Gap 15 (10-20) 12/10/16 07:16 BUN 17 mg/dL (9-20) 12/10/16 07:16 Creatinine 1.0 MG/DL (0.8-1.5) 12/10/16 07:16 Est GFR ( Amer) > 60 12/10/16 07:16 Est GFR (Non-Af Amer) > 60 12/10/16 07:16 POC Glucose (mg/dL) 138 mg/dL (65-110) H 12/10/16 11:32 Random Glucose 298 mg/dL (75-110) H 12/10/16 07:16 Hemoglobin A1c 8.3 % (4.2-6.5) H 12/09/16 06:37 Calcium 9.4 mg/dl (8.6-10.4) 12/10/16 07:16 Phosphorus 3.2 mg/dL (2.5-4.5) 12/09/16 06:37 Magnesium 2.0 mg/dL (1.6-2.3) 12/09/16 06:37 Total Bilirubin 0.5 mg/dL (0.2-1.3) 12/10/16 07:16 AST 19 U/L (17-59) 12/10/16 07:16 ALT 26 U/L (21-72) 12/10/16 07:16 Alkaline Phosphatase 50 U/L (38-126) 12/10/16 07:16 Total Creatine Kinase 143 U/L (55-170) 12/08/16 18:29 CK-MB (Mass) 1.58 ng/mL (0.0-3.38) 12/08/16 18:29 Troponin I < 0.0120 ng/mL (0.00-0.120) 12/08/16 06:05 Troponin I, Quant < 0.0120 ng/mL (0.00-0.120) 12/08/16 18:29 NT-Pro-B Natriuret Pep 62.7 pg/mL (0-900) 12/10/16 07:16 Total Protein 6.6 g/dL (6.3-8.3) 12/10/16 07:16 Albumin 3.5 g/dL (3.5-5.0) 12/10/16 07:16 Globulin 3.1 gm/dL (2.2-3.9) 12/10/16 07:16 Albumin/Globulin Ratio 1.2 (1.0-2.1) 12/10/16 07:16 Triglycerides 152 mg/dL (0-149) H 12/09/16 06:37 Cholesterol 175 mg/dL (0-199) 12/09/16 06:37 LDL Cholesterol Direct 120 mg/dL (0-129) 12/09/16 06:37 HDL Cholesterol 40 mg/dL (30-70) 12/09/16 06:37 TSH 3rd Generation 1.57 mIU/L (0.46-4.68) 12/09/16 06:37 Attending/Attestation - Attestation I have personally seen and examined this patient.: Yes I have fully participated in the care of the patient.: Yes I have reviewed all pertinent clinical information, including history, physical exam and plan: Yes Notes (Text): 12/10/16 18:29 Medical attending: Patient was seen and examined by me, agrees the above note by medical social consultant. We reviewed his echo with the patient, his cardiac enzymes also been negative. He had a torch cutter in the room to help us discuss what was going on the patient On examination we had the patient walk around in the hallway with us. As he did we reviewed the telemetry and his heart rate was normal sinus. Throughout the night he's been sinus bradycardia in the high 40s low 50s. So at this time this time the patient will be discharged, He'll need to go for an CHRIS inhibitor, low-dose statin, and baby aspirin. He needs to avoid beta blockers due to the slow heart rate this was explained Thank you very much, Crwo Arce
== END 2016-12-10 14:10 | disposition home or self-care (01) ==
LOC: C.ER 04:40 → C.9E 08:31 → C.6T 09:31
PROVIDERS: ADMIT Hospitalist; ATTEND Internal Medicine
DX: R07.9 Chest pain, unspecified (principal); E11.9 Type 2 diabetes mellitus without complications; Z79.4 Long term (current) use of insulin; I35.1 Nonrheumatic aortic (valve) insufficiency; I11.0 Hypertensive heart disease with heart failure; Z23 Encounter for immunization; I49.5 Sick sinus syndrome; I50.32 Chronic diastolic (congestive) heart failure
CPT/HCPCS: 36415; 71020; 80053; 80061; 82948; 83036; 83735; 83880; 84100; 84443; 84484; 85025; 85610; 85730; 90732; 93005; 93306; 99285; G0009; G0378; J1644